=== PATIENT | male | born 1985 | race Caucasian/White ===

== ENCOUNTER 2018-05-29 14:41 | Emergency (ER) | payer OTHER, SELFPAY ==
[2018-05-29 14:59] VITALS: BP 125/75; PULSE 61; RESP 12; TEMP 36.8; O2SAT 99
--- NOTE | 2018-05-29 15:21 | ED.GENADUL_ITS ---
Discharge Plan Disposition Patient Disposition: HOME Condition: Stable Discharge Details Chief Complaint: EarProblem Clinical Impression: Impacted cerumen of left ear Primary Care Provider: Henrietta Castillo ED Provider: Reilly Jha Home Meds and New Rx's Prescriptions: Continue sertraline 100 MG tablet 100 mg PO DAILY Qty: 90 RF: 0 loratadine 10 MG tablet 10 mg PO DAILY Qty: 90 RF: 3 Discharge Instructions Instructions: Cerumen Impaction (ED) Discharge Data Discharge Physician: Reilly Jha Medical Decision Making MDM Narrative Medical decision making narrative: 33 yo comes in with decreased hearing and full sensation in left ear for a day. Denies fevers or severe pain, on exam has impacted cerumen, will have nursing irrigate the ear large amount of cerumen came out with flushing and feels better, normal tm on repeat exam, will d/c home Differential Diagnosis cerumen impaction, aom HPI General Mode of arrival: ambulatory . Date/Time Provider Initiated Documentation: 05/29/18 15:15 . Limitations to Documentation: no limitations . Information obtained by: patient . History of Present Illness 33 year old M presents to the emergency department with the chief complaint of left ear fullness, described as mild, with intensity rated at 2. and is localized to the head (left ear). Patient started experiencing this day(s) (1 ) and it has been constant. No relieving factors improve symptom(s), Patient notes loss of appetite. Patient did receive the following treatments prior to arrival, none Related Data Previous Rx's Medication Instructions Recorded sertraline 100 mg PO DAILY #90 tab 06/20/17 loratadine 10 mg PO DAILY #90 tab-cap 08/14/17 Allergies Allergy/AdvReac Type Severity Reaction Status Date / Time animal dander Allergy Intermediate Unverified 05/29/18 15:02 ragweed pollen Allergy Intermediate Unverified 05/29/18 15:02 General Stated Complaint: EarProblem KELVIN: 5 Review of Systems Review of Systems All systems reviewed & are unremarkable except as noted in HPI and below Constitutional Denies chills, Denies fever(s) and Denies weakness Eyes Patient Denies loss of vision ENT Denies change in voice Cardiovascular Denies chest pain and Denies dyspnea Respiratory Denies dyspnea Gastrointestinal Denies abdominal pain, Denies nausea and Denies vomiting Genitourinary Denies dysuria Musculoskeletal Denies joint swelling Integumentary/Breasts Denies rash Neurologic Denies loss of vision and Denies weakness Psychiatric Denies depression Endocrine Denies cold intolerance and Denies heat intolerance Allergic/Immunologic Reports urticaria PFSH Family History Mother Cerebrovascular accident Father Diabetes Alcohol abuse Depression Heart disease Hyperlipidemia Neoplasm Son No problems noted. Daughter Asthma Daughter No problems noted. Brother Depression Brother No problems noted. Brother No problems noted. Social History Smoking/Tobacco Use Status: Never Surgical History PROCEDURES Repair of inguinal hernia Exam Const General: no acute distress Orientation: alert HENMT Head: normal to inspection Ears: external ears normal, TM normal on the right and other (left ear impacted with cerumen) General nose exam: external nose normal Mouth: moist mucous membranes Eyes General: appearance normal, both eyes and all related structures Neck Neck: normal visual inspection Resp Effort & Inspection: normal respiratory effort and able to speak in complete sentences Cardio Rate: regular rate Skin General skin exam: no rashes or lesions noted Neuro General: alert and oriented x3 Extrem General: normal to inspection Psych Mental Status: mental status grossly normal Course Vital Signs Temperature 36.8 C 05/29/18 14:59 Pulse 61 05/29/18 14:59 Respiratory Rate 12 05/29/18 14:59 Blood Pressure 125/75 05/29/18 14:59 Pulse Oximetry 99 05/29/18 14:59 Temperature 36.8 C 05/29/18 14:59 Pulse 61 05/29/18 14:59 Respiratory Rate 12 05/29/18 14:59 Blood Pressure 125/75 05/29/18 14:59 Pulse Oximetry 99 05/29/18 14:59
== END 2018-05-29 16:06 | disposition home or self-care (01) ==
LOC: ER 16:24
PROVIDERS: Emergency Provider Emergency Medicine
DX: H61.22 Impacted cerumen, left ear (principal)
CPT/HCPCS: 69209; 99281

== ENCOUNTER 2018-05-31 20:59 | Emergency (ER) | payer OTHER, SELFPAY ==
[2018-05-31 21:03] VITALS: BP 128/72; PULSE 80; RESP 17; TEMP 36.6; O2SAT 98
--- NOTE | 2018-05-31 21:16 | ED.GENADUL_ITS ---
Discharge Plan Disposition Patient Disposition: HOME Condition: Stable Discharge Details Chief Complaint: EarProblem Clinical Impression: Irritation of left external auditory canal Primary Care Provider: Henrietta Castillo ED Provider: Reilly Jha Home Meds and New Rx's Prescriptions: Continue sertraline 100 MG tablet 100 mg PO DAILY Qty: 90 RF: 0 loratadine 10 MG tablet 10 mg PO DAILY Qty: 90 RF: 3 Discharge Instructions Additional Instructions: use the drops 3 times in the left ear for 5 days. If the right ear starts to hurt you can also use it in this ear if you have severe worsening of pain or high fevers return to the emergency department if pain continues next week see your primary care provider you can take 1000mg tylenol and 600mg ibuprofen every 6 hours for pain as needed Discharge Data Discharge Physician: Reilly Jha Medical Decision Making 33 yo who had bilateral ears irrigated for cerumen impaction yesterday comes in with left ear discomfort, denies fevers or d/c. On exam he has inflammation of the left external auditory canal, will place on cortisporin drops to help with healing and cover for possible aom. TM's appear normal without perforation so do not feel oral abx indiacted Differential Diagnosis aom, cerumen impaction HPI General Mode of arrival: ambulatory . Date/Time Provider Initiated Documentation: 05/31/18 21:07 . Limitations to Documentation: no limitations . Information obtained by: patient . History of Present Illness 33 year old M presents to the emergency department with the chief complaint of left ear pain, described as moderate, with intensity rated at 5. Quality is described as aching, and is localized to the head (left ear). Patient reports no radiation. Patient started experiencing this day(s) (1) and it has been constant. No relieving factors improve symptom(s), No exacerbating factors reported . Patient notes no other symptoms.. Patient did receive the following treatments prior to arrival, none Related Data Home Medications Medication Instructions Recorded Confirmed sertraline 100 mg PO DAILY #90 tab 06/20/17 05/31/18 loratadine 10 mg PO DAILY #90 tab-cap 08/14/17 05/31/18 Previous Rx's Medication Instructions Recorded sertraline 100 mg PO DAILY #90 tab 06/20/17 loratadine 10 mg PO DAILY #90 tab-cap 08/14/17 Allergies Allergy/AdvReac Type Severity Reaction Status Date / Time animal dander Allergy Intermediate Unverified 05/29/18 15:02 ragweed pollen Allergy Intermediate Unverified 05/29/18 15:02 General Stated Complaint: EarProblem KELVIN: 5 Review of Systems Review of Systems All systems reviewed & are unremarkable except as noted in HPI and below Constitutional Denies chills, Denies fever(s) and Denies weakness Eyes Denies loss of vision ENT Denies change in voice Cardiovascular Denies chest pain and Denies dyspnea Respiratory Denies dyspnea Gastrointestinal Denies abdominal pain, Denies nausea and Denies vomiting Genitourinary Denies dysuria Musculoskeletal Denies joint swelling Integumentary/Breasts Denies rash Neurologic Denies loss of vision and Denies weakness Psychiatric Denies depression Endocrine Denies cold intolerance and Denies heat intolerance Allergic/Immunologic Reports urticaria Exam Const General: no acute distress Orientation: alert HENMT Head: normal to inspection Ears: external ears normal and other (tm's normal bilaterall and right external auditory canal normal, left canal is red and inflammed, no discharge) General nose exam: external nose normal Mouth: moist mucous membranes Eyes General: appearance normal, both eyes and all related structures Neck Neck: normal visual inspection Resp Effort & Inspection: normal respiratory effort and able to speak in complete sentences Cardio Rate: regular rate Skin General skin exam: no rashes or lesions noted Neuro General: alert and oriented x3 Extrem General: normal to inspection Psych Mental Status: mental status grossly normal Course Vital Signs Temperature 36.6 C 05/31/18 21:03 Pulse 80 05/31/18 21:03 Respiratory Rate 17 05/31/18 21:03 Blood Pressure 128/72 05/31/18 21:03 Pulse Oximetry 98 05/31/18 21:03 Temperature 36.6 C 05/31/18 21:03 Temperature Source Temporal Artery Scan 05/31/18 21:03 Pulse 80 05/31/18 21:03 Respiratory Rate 17 05/31/18 21:03 Respiratory Effort Non-Labored 05/31/18 21:05 Blood Pressure 128/72 05/31/18 21:03 Blood Pressure Position Sitting 05/31/18 21:03 Pulse Oximetry 98 05/31/18 21:03 Oxygen Delivery Method Room Air 05/31/18 21:03 Oxygen Flow Rate 0 05/31/18 21:03 Pain Level 5 05/31/18 21:05
[2018-05-31] MEDS: Cortisporin OTIC SUSP 10 ML BTL (21:21)
[2018-05-31 21:22] VITALS: BP 128/72; PULSE 80; RESP 17; TEMP 36.6; O2SAT 98
== END 2018-05-31 21:56 | disposition home or self-care (01) ==
LOC: ER 21:28
PROVIDERS: Emergency Provider Emergency Medicine
DX: H60.92 Unspecified otitis externa, left ear (principal)
CPT/HCPCS: 99283

== ENCOUNTER 2020-12-13 02:55 | Outpatient (CLI) | payer SELFPAY ==
[2020-12-14 18:30] LABS: COVID-19 RT-PCR UVMMC Result Negative (Negative)
== END 2020-12-13 02:56 | disposition home or self-care (01) ==
LOC: LBO 02:55
DX: Z20.822 Contact with and (suspected) exposure to COVID-19 (principal)
CPT/HCPCS: U0003

== ENCOUNTER 2023-07-05 07:32 | Observation (INO) | payer MEDICAID, SELFPAY ==
[2023-07-05] VITALS (33 sets, daily range): BP systolic 111–130; BP diastolic 65–108; PULSE 56–81; RESP 11–20; TEMP 35.9–36.6; O2SAT 93–99
--- NOTE | 2023-07-05 07:15 | RT.EKG_ITS ---
APPROVED REPORT Exam: Resting ECG Reason for Exam: [email or web address] Patient Location: E HR:68 bpm ECG Measurements Heart Rate 68 AXIS PA 152 P 41 QRSd 94 QRS 73 QT 377 T 57 QTc 400 Conclusion Sinus rhythm...normal P axis, V-rate 60- 99 ST elevation suggests acute pericarditis...ST >0.10mV, ant/lat/inf Sinus rhythm with diffuse ST elevation. No prior for comparison. WD
--- NOTE | 2023-07-05 07:30 | DI.CT_ITS ---
Exam(s) CT HEAD - STROKE PROTOCOL EXAM: CT HEAD - STROKE PROTOCOL CLINICAL HISTORY: numbness. TECHNIQUE: Imaging Protocol: Axial computed tomography images with coronal and sagittal reformatted images were created and reviewed COMPARISON: CT HEAD WITHOUT CONTRAST from 07/13/2013 FINDINGS: Ventricles and Extra axial spaces: Normal in size and morphology for the patient's age. Hemorrhage: None. Cerebral parenchyma: Normal. No evidence of acute infarct or mass. Midline shift: None. Brainstem/Cerebellum: Normal. Calvarium: Normal. Visualized Paranasal sinuses/Mastoids: Opacification of ethmoid sinuses. Some mucous retention in th e maxillary sinuses. Soft Tissues: Unremarkable. IMPRESSION: No acute intracranial process. RADIATION DOSE DELIVERED: Total DLP DATA REPOSITORY: All CT scans at this facility are submitted to the National Radiology Data Registry (NRDR) Dose Index Registry (DIR) with the [employer] (ACR). RADIATION OPTIMIZATION: All CT scans at this facility use at least one of these dose optimization te chniques: automated exposure control; mA and/or kV adjustment per patient size (includes targeted exa ms where dose is matched to clinical indication); or iterative reconstruction.
--- NOTE | 2023-07-05 07:37 | ED.GENADUL_ITS ---
Discharge Plan Disposition Patient Disposition: Admit to [facility] Condition: Stable Discharge Details Clinical Impression: Stroke, Right facial numbness Primary Care Provider: True Gray ED Provider: Aracely Naranjo Home Meds and New Rx's Prescriptions: No Action No Known Home Meds Medical Decision Making 38-year-old male presents for evaluation after episode of speech difficulty, right facial droop, and numbness tingling to right side now with mild residual subjective right-sided weakness. At time my evaluation NIH stroke score equals 1 for decreased sensation to right face at V2 and V3. Last known well was 10 PM. Symptoms were discovered upon awakening this morning just prior to arrival. EKG shows sinus rhythm. Stroke protocol initiated. Tick panel ordered. CT head unremarkable. EKG does not show arrhythmia. Laboratory studies unremarkable. Case discussed with Dr. iDaz neurology at [facility]. Recommends full stroke work-up with echo, MRI, CTA head and neck. Echocardiogram was unremarkable. CTA of head and neck unremarkable. MRI concerning for possible restriction in vessel in the left basal ganglia. Possible acute lacunar infarct. Case was discussed with Dr. Diaz again. She recommends admission for telemetry monitoring overnight. Patient likely needs a Zio patch as outpatient. He will need to follow-up in the neurology clinic and may need a GARTH. She recommends 21 days of dual anti-platelet therapy with aspirin and Plavix. Patient received aspirin earlier in the day. Plavix was ordered. Recommendations were discussed with patient and his mother. He is agreeable to admission. Case discussed with hospitalist who will admit to their service. HPI General Date/Time Provider Initiated Documentation: 07/05/23 07:32 . HPI Narrative: 38-year-old male presents for evaluation of strokelike symptoms. Patient states that he felt well prior to going to bed last night around 10 PM. This morning he woke up with his alarm and when he started walking he realized that he had numbness to his right hand and arm. He then noted numbness to his right foot and leg. He states that they then felt weak and he felt like the right side of his face was drooping. He states that he then had difficulty getting words out. He had his daughter wake up his mother. EMS was called. Soon after EMS arrival his speech issue resolved. He does not have any more numbness or tingling. No facial droop. He states that his right hand and foot feel a little weak. He is able to ambulate without difficulty. Denies any chest pain or shortness of breath. No fevers or chills. No cough or cold. 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 He denies any recent tick bites or rashes. He states in December he had an episode of chest pain for 30 minutes which she was concerned may have been a heart attack. He states that the time the pain was on his right side and not on his left. He did not see a doctor at that time. He denies any history of high blood pressure, high cholesterol, diabetes. He is a non-smoker. No family history of stroke. He states that his mother has a history of heart disease. Related Data Home Medications Medication Instructions Recorded Confirmed Unknown [No Known Home Meds] 01/31/23 07/05/23 Allergies Allergy/AdvReac Type Severity Reaction Status Date / Time animal dander Allergy Intermediate Verified 01/31/23 16:36 ragweed pollen Allergy Intermediate Verified 01/31/23 16:36 General Stated Complaint: CVA/TIA KELVIN: 2 Review of Systems Narrative: Remainder of review of systems otherwise negative except for as noted in the HPI x10. PFSH All Active Problems (Updated 07/05/23 @ 14:34 by Aracely Naranjo MD) Right facial numbness (Acute) Stroke (Chronic) Muscle strain (Acute) Insomnia (Chronic) Generalized anxiety disorder (Chronic) Allergic rhinitis (Chronic) Surgical History H/O inguinal hernia repair S/P excision of ganglion cyst Right wrist Family History Mother Stroke Father Diabetes Alcohol abuse Depression Heart disease Hyperlipidemia Neoplasm Son No problems noted. Daughter Asthma Daughter No problems noted. Brother Depression Brother No problems noted. Brother No problems noted. Social History Smoking/Tobacco Use Status: Never Smoking risk assessment performed?: Yes Alcohol Intake: current Alcohol Intake frequency: a few times a month Alcohol t ype: beer, wine and hard liquor Drug use: Rarely Substance use type: marijuana Do you feel safe in your relationship?: Yes Exam Narrative Exam Narrative: General: non-toxic, no respiratory distress, comfortable HEENT: normocephalic, atraumatic, lids and lashes normal, PERRL, EOMI, anicteric sclera, no conjunctival injection, moist oral mucosa Card: regular rate and rhythm, S1S2, no murmurs, rubs, or gallops Lungs: good air entry, clear to auscultation bilaterally. no wheezes, rales, rhonchi, or retractions Abd: soft, non-tender, non-distended, normal bowel sounds, no rebound or guarding, no peritoneal signs Musculoskeletal: full range of motion of arms and legs, no tenderness to palpation. no clubbing, cyanosis, or edema Neurologic exam: GSC 15, CN 2-12 intact bilaterally with exception of decreased sensation to the 2 and V3 of right face, speech normal, strength normal, sensation intact distally in all four extremities, gait normal, 2+ biceps tendon reflexes, normal finger to nose, normal rapid alternating movements, no pronator drift Psych: alert and oriented Skin: no petechiae, no lesions, warm and dry Course Vital Signs Vital signs: Vital Signs Pulse 77 07/05/23 07:23 Respiratory Rate 18 07/05/23 07:23 Blood Pressure 128/108 H 07/05/23 07:23 Pulse Oximetry 99 07/05/23 07:23 Pulse 77 07/05/23 07:23 Respiratory Rate 18 07/05/23 07:23 Blood Pressure 128/108 H 07/05/23 07:23 Pulse Oximetry 99 07/05/23 07:23 Oxygen Delivery Method Room Air 07/05/23 07:23 Oxygen Flow Rate 0 07/05/23 07:23
--- NOTE | 2023-07-05 07:53 | DI.RAD_ITS ---
Exam(s) XR CHEST 1V IN DI DEPT EXAM: XR CHEST 1V IN DI DEPT CLINICAL HISTORY: numbness TECHNIQUE: 2D digital imaging was performed. COMPARISON: CR RIBS BILATERAL TO INCLUDE CXR from 07/11/2013 FINDINGS: LUNGS: Clear. No pleural abnormality seen. HEART: Normal size. AORTA: Normal diameter. BONES: Unremarkable for age. Soft tissues: Unremarkable. IMPRESSION: No acute findings. DATA REPOSITORY: RADIATION DOSE DELIVERED:
[2023-07-05 08:10] LABS: Absolute Basophil Count 0.05 10^3/uL (0.0-0.2); Absolute Eosinophil Count 0.15 10^3/uL (0.0-0.7); Absolute Monocyte Count 0.39 10^3/uL (0.1-0.8); Absolute Neutrophil Count 2.13 10^3/uL (1.2-6.7); Basophils % 1.1; Eosinophils % 3.2; HCT 50.2 % (40.0-50.0); HGB 16.7 g/dL (13.5-17.5); Lymphocytes % 41.1; MCH 29.8 pg (27.0-33.0); MCHC 33.3 % (32.0-36.0); MCV 90 fL (80-95); MPV 9.7 fL (8.0-11.0); Monocytes % 8.4; Neutrophils % 46.2; Platelet Count 239 10^3/uL (130-400); RDW 12.4 % (11.8-14.1); RDW-SD 41.1 fL; WBC 4.62 10^3/uL (4.4-10.8)
[2023-07-05 08:33] LABS: ALT 93 U/L (16-63); AST 34 U/L (15-37); Alkaline Phosphatase 56 U/L (46-116); Anion Gap 7.6 mmol/L (3-11); BUN 19 mg/dL (7-18); Bilirubin, Total 0.7 mg/dL (0.2-1.0); CO2 30.4 mmol/L (21.0-32.0); Calcium 9.3 mg/dL (8.5-10.1); Chloride 101 mmol/L (98-107); Estimated GFR 99.41 (mL/min/1.73m2); Glucose 115 mg/dL (74-106); Magnesium 2.1 mg/dL (1.8-2.4); Potassium 4.1 mmol/L (3.5-5.1); Sodium 139 mmol/L (136-145); TSH (W/Ref FT4) 0.85 uIU/mL (0.36-3.74); Total Protein 7.6 g/dL (6.4-8.2); Troponin I < 50 ng/L (<or=60)
--- NOTE | 2023-07-05 10:00 | DI.US_ITS ---
APPROVED REPORT EXAM: Comprehensive 2D, Doppler, and color-flow Echocardiogram Patient Location: ER Room/Bed: 3 Wind Turbine Installer: Adolfo Barragan RDCS (AE) Indications: stroke Other Information Study Quality: Good Conclusion Normal left ventricular wall thickness and chamber size. Ejection fraction is 60 to 65%. Wall motio n is normal Normal right ventricular size and systolic function Both atria are normal in size There is no structural or hemodynamically significant valvular disease Estimated right ventricular systolic pressure is 22 mmHg Wall motion Left Ventricle The left ventricle is normal size. Left ventricular systolic function is normal. The left ventricular ejection fraction is within the normal range. There is normal left ventricular wall thickness. There is normal LV segmental wall motion. There is no ventricular septal defect visualized. LVEF is 60-65% . Right Ventricle The right ventricle is normal size. The right ventricular systolic function is normal. The RVSP is 22 .1 mmHg. Atria The left atrium size is normal. The right atrium size is normal. The interatrial septum is intact wit h no evidence for an atrial septal defect. Aortic Valve The aortic valve is normal in structure. Aortic valve is trileaflet. There is no aortic valvular sten osis. No aortic regurgitation is present. Mitral Valve The mitral valve is normal in structure. No evidence of mitral valve stenosis. There is no mitral renu ve regurgitation noted. Tricuspid Valve The tricuspid valve is normal in structure. There is no tricuspid valve stenosis. Mild tricuspid regu rgitation. Pulmonic Valve The pulmonary valve is normal in structure. There is no pulmonic valvular stenosis. Moderate pulmonic regurgitation. Great Vessels The aortic root is normal in size. The ascending aorta is normal in size. Aortic arch is normal in ca liber. IVC is normal in size and collapses >50% with inspiration. Pericardium There is no pericardial effusion. 2D Dimensions IVSD d PLAX 0.86 cm M: 0.6-1.2 Ao Root d 2.90 cm M: 3.1 - 3.7 LVPW d PLAX 0.86 cm M: 0.6 - 1.2 Ao Asc Diam d 3.10 cm M: 2.6 - 3.4 LVID d PLAX 4.12 cm M: 4.2 - 5.8 LVDs 2.65 cm M: 2.5 - 4.0 LV EF Teichholz 65.4 % FS 35.52 % LV EDV (Teich) 74.9 mL LV ESV (Teich) 25.9 mL Stroke Vol Index (Teich) 27.70 M-Mode TAPSE 2.08 cm (M/F) >1.7 Auto EF LV EDV A4C 111.2 mL LV EDV A2C 95.2 mL LV EDV BP 104.1 mL LV ESV A4C 43.7 mL LV ESV A2C 37.8 mL LV ESV BP 40.5 mL LVEF(%) A4C 60.7 % LVEF(%) A2C 60.3 % LVEF(%) BP 61.1 % LV SV A4C 67.5 ml LV SV A2C 57.4 ml LV SV BP 63.6 ml LV CO A4C 4.3 L/min LV CO A2C 3.4 L/min LV CO BP 3.8 L/min HR A4C 63.83 BPM HR A2C 58.44 BPM LV EDV Index (BP) LA Volume LA Length A4C 4.6 cm LA Length A2C LA Area A4C s 10.52 cm2 LA Area A2C s LA Vol A4C A-L 20.44 mL LA Vol A2C A-L LA Vol Biplane A-L LA Vol A4C MOD 18.4 mL LA Vol A2C MOD LA Vol BP MOD RA Volume RA Area A4C 9.3 cm2 RA ESV A4C (A-L) 19.2mL RA Vol/BSA A4C A-L RA Length A4C 3.9 cm RA ESV A4C (MOD) 19.2mL LV Diastology MV E' medial 0.125 (>0.07 m/s) MV E Vmax 0.77 (0.4-1.3 m/s) MV E/E' MED 6.17 (<14) MV A Vmax 0.45 (0.4-1.3 m/s) MV E' lateral 0.149 (>0.1 m/s) E/A Ratio 1.7 MV E/E' LAT 5.15 (<14) MV E' Average 0.137 m/s MV E/E'(average) 5.62 Aortic Valve AoV Vmax 1.21 m/s LVOT Diam s 2.10 cm AoV Peak Grad 5.8 mmHg AoV VTI 0.287 m AoV Mean Blanco. 0.86 m/s AoV Mean Grad 3.3 mmHg Mitral Valve MV DT 167 (160-240 msec) Pulmonary Valve PV Vmax 1.00 (0.5-1.5 m/s) RVOT Vmax 0.68 m/s PV Peak Grad 4.0 mmHg RVOT Peak Gr. 1.8 mmHg PV Mean Blanco 0.62 m/s RVOT VTI 0.167 m PV Mean Grad 1.8 mmHg RVOT Mean Gr. 1.0 mmHg Tricuspid Valve RA Pressure 3.00 mmHg TR Vmax 2.18 m/s TR Peak Grad 19.0 mmHg RVSP (TR) 22.1 mmHg
--- NOTE | 2023-07-05 10:00 | DI.MRI_ITS ---
Exam(s) MR BRAIN WO EXAM: MR BRAIN WO CLINICAL HISTORY: facial numbness, weaknes TECHNIQUE: Multiplanar multisequence MRI of the brain was performed. COMPARISON: CT CT HEAD - STROKE PROTOCOL from 07/05/2023 FINDINGS: VENTRICLES AND EXTRA AXIAL SPACES: Normal in size and morphology for the patient's age. MIDLINE SHIFT: None. CEREBRAL PARENCHYMA: There are few tiny foci of restricted diffusion in the left basal ganglia consis tent with acute lacunar infarct. No abnormal signal is seen on T2 or FLAIR images. There is no evid ence of an old infarct. No space-occupying lesion identified. HEMORRHAGE: None. BRAINSTEM/CEREBELLUM: Normal. VISUALIZED PARANASAL SINUSES/MASTOIDS:Opacification of ethmoid sinuses. Mucous retention at the floo r of the maxillary sinuses. Vasculature: Normal flow void. PITUITARY GLAND: Unremarkable. ORBITS: Unremarkable. IMPRESSION: Tiny foci of restricted diffusion consistent with acute lacunar infarcts in the left basal ganglia. Findings called to Dr. Naranjo of the emergency department. DATA REPOSITORY:
--- NOTE | 2023-07-05 10:00 | DI.CT_ITS ---
Exam(s) CT BRAIN NECK CTA EXAM: CT BRAIN NECK CTA CLINICAL HISTORY: facial numbness. TECHNIQUE: Imaging Protocol: Axial CT angiography was performed with multi-slice acquisition and mu lti-planar and 3D reconstructions. CONTRAST MATERIAL: Intravenous: Omnipaque 350 Contrast volume:100 ml COMPARISON: MR MR BRAIN WO from 07/05/[address] HEAD - STROKE PROTOCOL from 07/05/2023 FINDINGS: CT Head W contrast: Ventricles and Extra axial spaces: Normal in size and morphology for the patient's age. Hemorrhage: None. Cerebral parenchyma: Normal. Midline shift: None. Brainstem/Cerebellum: Normal. Calvarium: Normal. Visualized Paranasal sinuses/Mastoids: Indication of ethmoid sinuses. Significant mucous retention i n the maxillary sinuses. Soft Tissues: Unremarkable. Enhancement: Normal. CTA Brain W: Internal Carotid Arteries: Petrous: Normal. Cavernous: Normal. Cerebral: Normal. Middle Cerebral Arteries: Right: No aneurysm, occlusion or significant stenosis. Left: No aneurysm, occlusion or significant stenosis. Anterior Cerebral Arteries: Right: No aneurysm, occlusion or significant stenosis. Left: No aneurysm, occlusion or significant stenosis. Posterior cerebral Arteries: Right: No aneurysm, occlusion or significant stenosis. Left: No aneurysm, occlusion or significant stenosis. Vertebral Arteries: Right: No aneurysm, occlusion or significant stenosis. Left: No aneurysm, occlusion or significant stenosis. Basilar Artery: No aneurysm, occlusion or significant stenosis. CTA Neck W: Common Carotid: Right: No dissection, occlusion or significant stenosis. Left: No dissection, occlusion or significant stenosis. External Carotid: Right: No dissection, occlusion or significant stenosis. Left: No dissection, occlusion or significant stenosis. Internal Carotid: Right: No dissection, occlusion or significant stenosis. Left: No dissection, occlusion or significant stenosis. Vertebral Artery: Right: No dissection, occlusion or significant stenosis. Left: No dissection, occlusion or significant stenosis. Lung Apices: Normal. Bones: No acute abnormality. Soft Tissues: Normal. IMPRESSION: 1. Normal CTA examination of the [place]. 2. Unremarkable CT Head. 3. Normal CTA examination of the neck. RADIATION DOSE DELIVERED: Total DLP Total DLP DATA REPOSITORY: All CT scans at this facility are submitted to the National Radiology Data Registry (NRDR) Dose Index Registry (DIR) with the [employer] (ACR). RADIATION OPTIMIZATION: All CT scans at this facility use at least one of these dose optimization te chniques: automated exposure control; mA and/or kV adjustment per patient size (includes targeted exa ms where dose is matched to clinical indication); or iterative reconstruction.
[2023-07-05] MEDS: Aspirin 325 MG TAB PO (10:27)
[2023-07-05 10:49] LABS: Bilirubin Negative (Negative); Blood Negative (Negative); Clarity Clear (Clear); Glucose Negative (Negative); Ketones Negative (Negative); Leukocyte Esterase Negative (Negative); Nitrite Negative (Negative); Urobilinogen 0.2 mg/dL (Up to 0.2)
[2023-07-05 10:58] LABS: *AMPHETAMINES SCREEN URINE Negative (Negative); *BARBITURATES SCREEN URINE Negative (Negative); *BENZODIAZEPINES SCREEN URINE Negative (Negative); Cannabinoids THC Negative (Negative); Cocaine Screen,Urine Negative (Negative); METHADONE URINE SCREEN Negative (Negative); OPIATES URINE SCREEN Negative (Negative)
[2023-07-05 11:02] LABS: Tricyclic Antidepressants Negative (Negative)
[2023-07-05 11:13] LABS: Troponin I < 50 ng/L (<or=60)
[2023-07-05] MEDS: Omnipaque 350 MG/ML 500 ML BTL-Imaging package 100 ML IJ (12:03)
[2023-07-05] MEDS: Normal Saline - Diluent 50 ML VIAL IJ (12:05)
[2023-07-05] MEDS: Clopidogrel 75 MG TAB PO (14:02)
[2023-07-05 14:10] LABS: Cholesterol 264 mg/dL (<200)
[2023-07-05 14:18] LABS: Source Nasal/Nares
[2023-07-05 15:01] LABS: COVID-19 PCR Negative (Negative)
[2023-07-05] MEDS: Enoxaparin 40 MG/0.4 ML SYR SC (16:19)
[2023-07-05 17:09] LABS: Hemoglobin A1C 5.3 % (<5.7)
--- NOTE | 2023-07-05 17:18 | SP_ITS ---
Date of service: 07/05/23 Time of Service: 17:20 Subjective Clinical (Bedside) Swallow Evaluation Speech Language Pathology Referred by: Dr. Ele MD Hospitalist Service Referral Type: Clinical Swallow Evaluation Reason for Referral/HPI: Stroke protocol/rule out dysphagia, aspiration risk ASSESSMENT: No evidence of dysphagia or speech-language impairment. Cranial nerve exam normal including sensation (facial, lingual). FURTHER DRAWING SUPERVISOR SERVICES: No further DRAWING SUPERVISOR services indicated. Patient was educated on indications for DRAWING SUPERVISOR re-evaluation including speech changes, s/sx aspiration or swallowing changes, or word-finding difficulties. Diet recommendation: IDDSI Level 7-Regular Solids 0-Thin Liquids -Please see further details at [email or web address] -Diet texture modification is per patient's preference; please adjust diet textures at patient's discretion & collaboration with care team. Medication Administration: As tolerated SUBJECTIVE: Patient received alert/awake, agreeable to evaluation. Denies current s/sx aspiration, stasis, or other difficulties with swallowing. Denies difficulty swallowing pills. Endorses possible slight residual R facial numbness/sensation changes, then saying maybe it's just because I've been sitting here doing nothing all day. Endorses initial speech disturbances (slurred) and word-finding difficulties which resolved earlier this date. Pain Reported? N Baseline Swallow Function: Patient denies swallowing difficulty prior to admission and eats a regular diet at baseline. OBJECTIVE: Respiratory: Tolerates room air without s/sx dyspnea. Speech screening: No dysarthric or apraxic features noted in conversation. Normal speech AMR'SMR's. Language: No overt word-finding difficulties or abnormal pauses. Syntax is normal. Responses to multi-part questions are appropriate and reliable. Normal prosody and pragmatics in short conversation. PO Trials Assessed: IDDSI 0 Thin Liquids IDDSI 7 Regular Solid Oral Mechanism Examination: WFL Dentition is normal. Oral mucosa is moist/normal. Cranial Nerve Assessment: CN V ? Trigeminal Facial Sensation WNL Jaw Strength/ROM WNL ?WNL CN VII- Facial WNL labial ROM, strength, coordination. WNL lingual sensation WNL CN IX ? Glossopharyngeal WNL palatal elevation with phonation. No evidence of nasal emissions WNL CN X ? Vagus WNL Vocal quality and volume. Strong/sharp volitional cough WNL CX XII ? Hypoglossal WNL lingual ROM, strength, coordination WNL Oral Phase Findings: WFL Pharyngeal Phase Findings: WFL ? [place] Swallow Protocol Results: PASS, Complete/uninterrupted without s/sx aspiration ??? DRAWING SUPERVISOR CPT Code: 88884 Clinical Swallowing Evaluation Time spent: 20 min Coding CPT Codes EVALUATE SWALLOWING FUNCTION - 71464 ([id number]) Additional Codes Date of Service (67609) Date of service: 07/05/23
--- NOTE | 2023-07-05 18:11 | W.PM.HP.N ---
Date of service: 07/05/23 Time of Service: 18:11 Assessment and Plan Assessment and plan (1) Infarction of left basal ganglia: Status: Acute Assessment and plan: Patient has essentially completed the stroke work-up while he was waiting in the ER. Patient has been started on dual antiplatelet therapy with Plavix and aspirin. I have added atorvastatin to his regimen. He will need follow-up outpatient GARTH to rule out a PFO. He will need a 14-day cardiac event recorder for 30-day event recorder to assess for any PAF. I have ordered blood studies to look for hypercoagulability including Leyden factor V mutation factor as well as lupus anticoagulant cascade and Antithrombin III functional assay as well as GABRIELLE and [id number] DNA as well as protein C and protein S functional assay. I also ordered prothrombin [id number] mutation factor assay. Patient has no arrhythmias overnight and has no further neurologic symptoms and he can be discharged home tomorrow with close follow-up in the neurology clinic with Dr. Montoya in the next 2 weeks. He should be referred to cardiology at either [facility] or [facility] for an outpatient GARTH. Physical therapy should see him and evaluate him and clear him for discharge tomorrow. Speech therapy has already seen him and cleared him. Professional time spent interviewing and examining patient, discussion of goals of care with hospital team (care management, nursing and consulting professionals) was 60 minutes. History of Present Illness History of Present Illness Chief Complaint: right sided numbness and weakness, difficult speech Narrative: 38-year-old right-handed male with no significant past medical history who woke up around 6:15 AM got his children up and went to prepare breakfast when he noticed right hand numbness that over the next 10 minutes progressed to his entire right arm and right leg as well as his right face. He knows he was getting clumsy and weak on the right side. He sat on the couch to see if it was getting better when it progressed he started having difficulty with his speech trouble pronouncing words which led to him calling his daughter to wake up his mother who was staying with him. His mother called EMS since the EMS arrived around 6:45 AM and he arrived to the emergency department 7:23 AM. By the time EMS arrived his speech was starting to clear and by the time he arrived to the emergency department his right hemiparesis and paresthesias had improved. Per the ED doctor's exam he had no focal motor deficits no focal sensory deficits. Stroke work-up included noncontrast CT scan head showed no acute abnormalities. Subsequently he had a CTA of his head and neck which showed no atherosclerotic narrowing of his cervical cerebral vessels. There were no occlusions of any of his vessels of the [place] or within his cervical vessels. MRI scan was performed and showed a restricted diffusion defect within the left basal ganglia consistent with acute lacunar infarcts. Echocardiogram was performed without bubble study or contrast and showed normal left ventricular and right ventricular size and function and normal atria size and no valvular lesions. The ED provider spoke with neurologist at [facility], Dr. iDaz who recommended dual antiplatelet therapy for 21 days and then continue aspirin thereafter. She also recommend patient have an outpatient GARTH and needs close follow-up in the neurology clinic. She also recommend extended cardiac monitoring upon discharge with at least a 14-day Zio patch. He recommended that he be hospitalized on observation status for 24 hours to look for any cardiac arrhythmias to make sure he has no progression of his stroke. Patient has been admitted to the medical/surgical floor on telemetry has had stable rhythm. Speech therapy and physical therapy been consulted. DUTY ENGINEER provider has cleared him and feels that he needs no speech follow-up. Physical therapy has yet to see the patient. Patient feels that he is back to his baseline. He denies any visual problems and says that the feeling in his face,right hand and arm and leg is back to normal. He has mild headache from lack of caffeine. With regard to stroke risk factors he does not smoke on a regular basis he occasionally will have marijuana couple times a month. He denies alcohol use. He has no personal history of essential hypertension or diabetes or hyperlipidemia. There is been no family history of hypercoagulable disorder or family history of strokes. He denies any palpitations or chest pain to suggest any arrhythmias. 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 Review of Systems Constitutional Constitutional: Reports as per HPI Eyes Eyes: Reports system reviewed and no additional complaints, except as documented ENT Ears, Nose, Mouth, and Throat: Reports system reviewed and no additional complaints, except as documented Cardiovascular Cardiovascular: Reports system reviewed and no additional complaints, except as documented Respiratory Respiratory: Reports system reviewed and no additional complaints, except as documented Gastrointestinal Gastrointestinal: Reports system reviewed and no additional complaints, except as documented Neurologic Neurologic: Reports system reviewed and no additional complaints, except as documented Endocrine Endocrine: Reports system reviewed and no additional complaints, except as documented Hematologic/Lymphatic Hematologic/Lymphatic: Reports system reviewed and no additional complaints, except as documented Allergic/Immunologic Allergic/Immunologic: Reports system reviewed and no additional complaints, except as documented PFSH All Active Problems (Updated 07/05/23 @ 19:01 by Hari Marlow MD) Infarction of left basal ganglia (Acute) Right facial numbness (Acute) Stroke (Chronic) Muscle strain (Acute) Insomnia (Chronic) Generalized anxiety disorder (Chronic) Allergic rhinitis (Chronic) Surgical History H/O inguinal hernia repair S/P excision of ganglion cyst Right wrist Family History Mother Stroke Father Diabetes Alcohol abuse Depression Heart disease Hyperlipidemia Neoplasm Son No problems noted. Daughter Asthma Daughter No problems noted. Brother Depression Brother No problems noted. Brother No problems noted. Social History Smoking/Tobacco Use Status: Never Smoking risk assessment performed?: Yes Alcohol Intake: current Alcohol Intake frequency: a few times a month Alcohol type: beer, wine and hard liquor Drug use: Rarely Substance use type: marijuana Housing: house Do you feel safe in your relationship?: Yes Meds Allergies and Home Medications Allergies Allergy/AdvReac Type Severity Reaction Status Date / Time animal dander Allergy Intermediate Verified 01/31/23 16:36 ragweed pollen Allergy Intermediate Verified 01/31/23 16:36 Home Medications Medication Instructions Recorded Confirmed Type Unknown [No Known Home Meds] 01/31/23 07/05/23 History Exam Narrative Exam Narrative: Alert and oriented x4 HEENT: Atraumatic normocephalic, pupils equally round reactive to light and accommodation, extraocular motion intact, TMs intact, nares moist and patent without exudate or bleeding, oropharynx noninjected without exudate, teeth in good repair Neck: Supple, nontender, without thyromegaly or lymphadenopathy or JVD. Normal carotid pulses Lungs: Clear to auscultation and percussion Heart: Regular rate and rhythm without murmur rub or gallop. Normal apical impulse Abdomen: Nondistended, normal bowel sounds, nontender to palpation or percussion, no organomegaly, no bruits, no palpable masses Extremities: Normal range of motion with normal strength. No peripheral cyanosis or edema. Normal pulses Neurologic: Cranial nerves II through XII grossly within normal limits. Normal strength and sensation over the face trunk and extremities. DTRs within normal limits. No tremors or asterixis. No dysdiadochokinesia. Results Labs 07/05/23 07:30 07/05/23 07:30 Labs: Laboratory Results - last 24 hr 07/05/23 07/05/23 07/05/23 07:30 10:26 10:33 WBC 4.62 RBC 5.60 Hgb 16.7 Hct 50.2 H MCV 90 MCH 29.8 MCHC 33.3 RDW 12.4 Plt Count 239 MPV 9.7 Immature Gran % 0.0 Neutrophils % 46.2 Lymphocytes % 41.1 Monocytes % 8.4 Eosinophils % 3.2 Basophils % 1.1 Nucleated RBC % 0.0 Absolute Neutrophils 2.13 Absolute Lymphocytes 1.90 Absolute Monocytes 0.39 Absolute Eosinophils 0.15 Absolute Basophils 0.05 Sodium 139 Potassium 4.1 Chloride 101 Carbon Dioxide 30.4 Anion Gap 7.6 BUN 19 H Creatinine 1.0 Est GFR (CKD-EPI 2020) 99.41 Glucose 115 H Hemoglobin A1c Calcium 9.3 Magnesium 2.1 Total Bilirubin 0.7 AST 34 ALT 93 H Alkaline Phosphatase 56 Troponin I < 50 < 50 Total Protein 7.6 Albumin 4.0 Total Cholesterol 264 H TSH 0.85 Urine Color Yellow Urine Clarity Clear Urine pH 8.0 Ur Specific [place] 1.020 Urine Protein Negative Urine Ketones Negative Urine Blood Negative Urine Nitrite Negative Urine Bilirubin Negative Urine Urobilinogen 0.2 Ur Leukocyte Esterase Negative Urine Glucose Negative Urine Opiates Screen Negative Urine Methadone Screen Negative Ur Barbiturates Screen Negative Ur Tricyclics Screen Negative Ur Amphetamines Screen Negative U Benzodiazepines Scrn Negative Urine Cocaine Screen Negative Ur THC Screen Negative COVID-19 Source SARS-CoV-2 (PCR) 07/05/23 07/05/23 14:11 16:49 WBC RBC Hgb Hct MCV MCH MCHC RDW Plt Count MPV Immature Gran % Neutrophils % Lymphocytes % Monocytes % Eosinophils % Basophils % Nucleated RBC % Absolute Neutrophils Absolute Lymphocytes Absolute Monocytes Absolute Eosinophils Absolute Basophils Sodium Potassium Chloride Carbon Dioxide Anion Gap BUN Creatinine Est GFR (CKD-EPI 2020) Glucose Hemoglobin A1c 5.3 Calcium Magnesium Total Bilirubin AST ALT Alkaline Phosphatase Troponin I Total Protein Albumin Total Cholesterol TSH Urine Color Urine Clarity Urine pH Ur Specific [place] Urine Protein Urine Ketones Urine Blood Urine Nitrite Urine Bilirubin Urine Urobilinogen Ur Leukocyte Esterase Urine Glucose Urine Opiates Screen Urine Methadone Screen Ur Barbiturates Screen Ur Tricyclics Screen Ur Amphetamines Screen U Benzodiazepines Scrn Urine Cocaine Screen Ur THC Screen COVID-19 Source Nasal/Nares SARS-CoV-2 (PCR) Negative Last Vital Signs Temp 35.9 C L 07/05/23 15:44 Pulse 76 07/05/23 15:44 Resp 19 07/05/23 15:44 BP 126/81 07/05/23 15:44 Pulse Ox 97 07/05/23 15:44 Time Spent Time spent with Patient: 55-74 minutes Time was spent: preparing to see the patient(eg.review tests), obtaining and/or reviewing separately otained hiistory, ordering medications,tests, procedures, referring, communicating with other health reproductive healthcare assistant, indepentently interpreting results, counseling the patient and care coordination
[2023-07-05] MEDS: Atorvastatin 40 MG TAB 80 MG PO (19:14)
[2023-07-05] MEDS: Normal Saline Flush 10 ML SYR IVP (19:14)
--- NOTE | 2023-07-06 02:30 | RT.EKG_ITS ---
APPROVED REPORT Exam: Resting ECG Reason for Exam: telemetry change Patient Location: I HR:55 bpm ECG Measurements Heart Rate 55 AXIS FL 166 P 34 QRSd 94 QRS 76 QT 417 T 64 QTc 399 Conclusion Sinus rhythm...normal P axis, V-rate 50- 99 Artifact in lead(s) I,II,aVR,aVL,aVF
[2023-07-06 03:14] VITALS: BP 120/75; PULSE 58; RESP 18; TEMP 36.4; O2SAT 95
[2023-07-06 03:34] LABS: Troponin I < 50 ng/L (<or=60)
[2023-07-06 05:23] LABS: Anion Gap 10.5 mmol/L (3-11); BUN 17 mg/dL (7-18); CO2 21.5 mmol/L (21.0-32.0); CREATININE 0.9 mg/dL (0.70-1.30); Chloride 102 mmol/L (98-107); Estimated GFR 112.81 (mL/min/1.73m2); Glucose 114 mg/dL (74-106); Potassium 4.4 mmol/L (3.5-5.1); Sodium 134 mmol/L (136-145)
--- NOTE | 2023-07-06 06:50 | DSE_ITS ---
Date of service: 07/06/23 Time of Service: 09:39 DS: Diagnosis Discharge Diagnosis (1) Infarction of left basal ganglia: Status: Acute Asessment and Plan: Pt had no recurrence of CVA symptoms. Telemetry monitoring showed no arrhythmias. Will discharge home with a 30 day cardiac event monitor. Schedule an outpt GARTH at [facility] Lipitor 40mg daily Plavix 75mg daily for 21-30 days then d/c. Aspirin 81mg daily. Total cholesterol 264. A1c 5.4 Discharge Plan Disposition Patient Disposition: Home Condition: Good Discharge Details Reason For Visit: CVA Admit Date/Time: 07/05/23 13:57 Admit Provider: Hari Marlow Attending Provider: Hari Marlow Primary Care Provider: True Gray Hospital Course Hospital Course: This is a 38-year-old right-handed male with no significant past medical history who woke up around 6:15 AM got his children up and went to prepare breakfast when he noticed right hand numbness that over the next 10 minutes progressed to his entire right arm and right leg as well as his right face. He knows he was getting clumsy and weak on the right side. He sat on the couch to see if it was getting better when it progressed he started having difficulty with his speech trouble pronouncing words which led to him calling his daughter to wake up his mother who was staying with him. His mother called EMS since the EMS arrived around 6:45 AM and he arrived to the emergency department 7:23 AM. By the time EMS arrived his speech was starting to clear and by the time he arrived to the emergency department his right hemiparesis and paresthesias had improved. Per the ED doctor's exam he had no focal motor deficits no focal sensory deficits. Stroke work-up included noncontrast CT scan head showed no acute abnormalities. Subsequently he had a CTA of his head and neck which showed no atherosclerotic narrowing of his cervical cerebral vessels. There were no occlusions of any of his vessels of the [place] or within his cervical vessels. MRI scan was performed and showed a restricted diffusion defect within the left basal ganglia consistent with acute lacunar infarcts. Echocardiogram was performed without bubble study or contrast and showed normal left ventricular and right ventricular size and function and normal atria size and no valvular lesions. The ED provider spoke with neurologist at [facility], Dr. Diaz who recommended dual antiplatelet therapy for 21 days and then continue aspirin thereafter. She also recommend patient have an outpatient GARTH and needs close follow-up in the neurology clinic. She also recommend extended cardiac monitoring upon discharge with at least a 14-day Zio patch. He recommended that he be hospitalized on observation status for 24 hours to look for any cardiac arrhythmias to make sure he has no progression of his stroke. Patient has been admitted to the medical/surgical floor on telemetry has had stable rhythm. Speech therapy and physical therapy been consulted. DESK MANAGER provider has cleared him and feels that he needs no speech follow-up. Physical therapy has yet to see the patient. Patient feels that he is back to his baseline. He denies any visual problems and says that the feeling in his face,right hand and arm and leg is back to normal. He has mild headache from lack of caffeine. With regard to stroke risk factors he does not smoke on a regular basis he occasionally will have marijuana couple times a month. He denies alcohol use. He has no personal history of essential hypertension or diabetes or hyperlipidemia. There is been no family history of hypercoagulable disorder or family history of strokes. He denies any palpitations or chest pain to suggest any arrhythmias. 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 See Diagnosis PCP f/u in 1 week. Home Meds and New Rx's Prescriptions: New atorvastatin 40 mg Tablet 40 mg PO QPM Qty: 30 0RF clopidogrel 75 mg Tablet 75 mg PO DAILY Qty: 30 0RF aspirin 81 mg Tablet,Delayed Release (Dr/Ec) 81 mg PO DAILY Qty: 0 0RF Discharge Instructions Instructions: Ischemic Stroke (GEN), Hyperlipidemia (GEN), Mediterranean Diet (GEN) Referrals: [facility] [Outside] ([facility] V[facility]; Transesophageal Echocardiogram. CVA work-up.) Activity:: Activity as Tolerated Equipment/Supplies:: No Equipment Needed Diet:: Heart healthy, mediterranean Discharge Orders Discharge Orders: Discharge Order (Routine); Ordered 07/06/23 Ordered By: Reynaldo Crook Other Ambulatory Orders: Cardiac Event Recorder (Routine) Timeframe: 30 Days Facility: [facility] - Location: Respiratory Therapy Ordered By: Reynaldo Crook DS: Summary Time Spent with Patient providing and/or coordinating discharge services: Greater than 30 minutes Status at Discharge Functional status at discharge: independent ambulation Overall status at discharge: patient is back to baseline Mental Status: mental status grossly normal Speech and Movement: speech and movement normal Mood: congruent mood Affect: normal affect Exam Narrative Exam Narrative: Gen: Alert and oriented x4. Ambulating in room. HEENT: Atraumatic normocephalic, pupils equally round reactive to light and accommodation, extraocular motion intact Neck: Supple, nontender, without thyromegaly or lymphadenopathy or JVD. Normal carotid pulses Lungs: Clear to auscultation and percussion Heart: Regular rate and rhythm without murmur Abdomen: Nondistended, normal bowel sounds, nontender Extremities: Normal range of motion with normal strength. No edema. Neurologic: Cranial nerves II through XII grossly within normal limits. Normal strength and sensation over the face trunk and extremities. No tremors or asterixis. No dysdiadochokinesia. Psych Mental Status: mental status grossly normal Speech and Movement: speech and movement normal Mood: congruent mood Affect: normal affect DS: Data Vitals/I&O Vitals and I&O: Vital Signs Temperature 36.4 C L 07/06/23 03:14 Temperature Source Tympanic 07/06/23 03:14 Pulse 58 L 07/06/23 03:14 Pulse Rhythm Regular 07/06/23 02:07 Pulse 63 07/05/23 13:30 Respiratory Rate 18 07/06/23 03:14 Respiratory Effort Normal 07/06/23 02:07 Respiratory Depth Normal 07/06/23 02:07 Respiratory Pattern Normal 07/06/23 02:07 Blood Pressure 120/75 07/06/23 03:14 Blood Pressure Mean 88 07/05/23 13:08 Pulse Oximetry 95 07/06/23 03:14 Oxygen Delivery Method Room Air 07/06/23 03:14 Oxygen Flow Rate 0 07/06/23 03:14 Pain Level 0 07/05/23 23:31 Intake & Output 07/05/23 07/05/23 07/06/23 11:59 23:59 11:59 Intake Total Balance Weight 68.039 kg 68 kg Intake: IV Other: Urine Appearance Clear Clear Urine Odor None Comment Pt independent w/ toileting Data Completed and Pending Labs on day of discharge: Labs from last 24 hours 07/06/23 07/06/23 07/06/23 08:30 05:35 02:50 WBC RBC Hgb Hct MCV MCH MCHC RDW Plt Count MPV Immature Gran % Neutrophils % Lymphocytes % Monocytes % Eosinophils % Basophils % Nucleated RBC % Absolute Neutrophils Absolute Lymphocytes Absolute Monocytes Absolute Eosinophils Absolute Basophils ESR Pending Lupus Anticoag Interp Pending Functional Protein C Pending Functional Protein S Pending Func Antithrombin III Pending Antithrombin III Activ Pending Factor V Leiden Mutat Pending Factor V Leiden Interp Pending Fact V Leiden Review By Pending Sodium 134 L Potassium 4.4 Chloride 102 Carbon Dioxide 21.5 Anion Gap 10.5 BUN 17 Creatinine 0.9 Est GFR (CKD-EPI 2020) 112.81 Glucose 114 H Hemoglobin A1c Calcium 9.0 Magnesium Total Bilirubin AST ALT Alkaline Phosphatase Troponin I < 50 Total Protein Albumin Total Cholesterol TSH Urine Color Urine Clarity Urine pH Ur Specific Lawrence Urine Protein Urine Ketones Urine Blood Urine Nitrite Urine Bilirubin Urine Urobilinogen Ur Leukocyte Esterase Urine Glucose Urine Opiates Screen Urine Methadone Screen Ur Barbiturates Screen Ur Tricyclics Screen Ur Amphetamines Screen U Benzodiazepines Scrn Urine Cocaine Screen Ur THC Screen GABRIELLE Titer Pending GABRIELLE Titer 2 Pending GABRIELLE Titer 3 Pending GABRIELLE Interpretation Pending Double Strand DNA Ab Pending B. divergens/MO-1 PCR Babesia duncani (PCR) Babesia microti DNA PCR Lyme Disease Antibody COVID-19 Source SARS-CoV-2 (PCR) E.chaffeensis DNA (PCR) E.ewingii/canis DNA PCR E.muris eauclairensis (PCR) Prothrombin [id number] Mut Pending Prothrombin Mut Interp Pending Prothromb Reviewed By Pending A. phagocytophilum (PCR) Blood B. miyamotoi (PCR) 07/05/23 07/05/23 07/05/23 16:49 14:11 10:33 WBC RBC Hgb Hct MCV MCH MCHC RDW Plt Count MPV Immature Gran % Neutrophils % Lymphocytes % Monocytes % Eosinophils % Basophils % Nucleated RBC % Absolute Neutrophils Absolute Lymphocytes Absolute Monocytes Absolute Eosinophils Absolute Basophils ESR Lupus Anticoag Interp Functional Protein C Functional Protein S Func Antithrombin III Antithrombin III Activ Factor V Leiden Mutat Factor V Leiden Interp Fact V Leiden Review By Sodium Potassium Chloride Carbon Dioxide Anion Gap BUN Creatinine Est GFR (CKD-EPI 2020) Glucose Hemoglobin A1c 5.3 Calcium Magnesium Total Bilirubin AST ALT Alkaline Phosphatase Troponin I < 50 Total Protein Albumin Total Cholesterol TSH Urine Color Urine Clarity Urine pH Ur Specific Lawrence Urine Protein Urine Ketones Urine Blood Urine Nitrite Urine Bilirubin Urine Urobilinogen Ur Leukocyte Esterase Urine Glucose Urine Opiates Screen Urine Methadone Screen Ur Barbiturates Screen Ur Tricyclics Screen Ur Amphetamines Screen U Benzodiazepines Scrn Urine Cocaine Screen Ur THC Screen GABRIELLE Titer GABRIELLE Titer 2 GABRIELLE Titer 3 GABRIELLE Interpretation Double Strand DNA Ab B. divergens/MO-1 PCR Babesia duncani (PCR) Babesia microti DNA PCR Lyme Disease Antibody COVID-19 Source Nasal/Nares SARS-CoV-2 (PCR) Negative E.chaffeensis DNA (PCR) E.ewingii/canis DNA PCR E.muris eauclairensis (PCR) Prothrombin [id number] Mut Prothrombin Mut Interp Prothromb Reviewed By A. phagocytophilum (PCR) Blood B. miyamotoi (PCR) 07/05/23 07/05/23 10:26 07:30 WBC 4.62 RBC 5.60 Hgb 16.7 Hct 50.2 H MCV 90 MCH 29.8 MCHC 33.3 RDW 12.4 Plt Count 239 MPV 9.7 Immature Gran % 0.0 Neutrophils % 46.2 Lymphocytes % 41.1 Monocytes % 8.4 Eosinophils % 3.2 Basophils % 1.1 Nucleated RBC % 0.0 Absolute Neutrophils 2.13 Absolute Lymphocytes 1.90 Absolute Monocytes 0.39 Absolute Eosinophils 0.15 Absolute Basophils 0.05 ESR Lupus Anticoag Interp Functional Protein C Functional Protein S Func Antithrombin III Antithrombin III Activ Factor V Leiden Mutat Factor V Leiden Interp Fact V Leiden Review By Sodium 139 Potassium 4.1 Chloride 101 Carbon Dioxide 30.4 Anion Gap 7.6 BUN 19 H Creatinine 1.0 Est GFR (CKD-EPI 2020) 99.41 Glucose 115 H Hemoglobin A1c Calcium 9.3 Magnesium 2.1 Total Bilirubin 0.7 AST 34 ALT 93 H Alkaline Phosphatase 56 Troponin I < 50 Total Protein 7.6 Albumin 4.0 Total Cholesterol 264 H TSH 0.85 Urine Color Yellow Urine Clarity Clear Urine pH 8.0 Ur Specific Lawrence 1.020 Urine Protein Negative Urine Ketones Negative Urine Blood Negative Urine Nitrite Negative Urine Bilirubin Negative Urine Urobilinogen 0.2 Ur Leukocyte Esterase Negative Urine Glucose Negative Urine Opiates Screen Negative Urine Methadone Screen Negative Ur Barbiturates Screen Negative Ur Tricyclics Screen Negative Ur Amphetamines Screen Negative U Benzodiazepines Scrn Negative Urine Cocaine Screen Negative Ur THC Screen Negative GABRIELLE Titer GABRIELLE Titer 2 GABRIELLE Titer 3 GABRIELLE Interpretation Double Strand DNA Ab B. divergens/MO-1 PCR Pending Babesia duncani (PCR) Pending Babesia microti DNA PCR Pending Lyme Disease Antibody Pending COVID-19 Source SARS-CoV-2 (PCR) E.chaffeensis DNA (PCR) Pending E.ewingii/canis DNA PCR Pending E.muris eauclairensis (PCR) Pending Prothrombin [id number] Mut Prothrombin Mut Interp Prothromb Reviewed By A. phagocytophilum (PCR) Pending Blood B. miyamotoi (PCR) Pending PFSH All Active Problems Infarction of left basal ganglia (Acute) Right facial numbness (Acute) Stroke (Chronic) Muscle strain (Acute) Insomnia (Chronic) Generalized anxiety disorder (Chronic) Allergic rhinitis (Chronic) Surgical History H/O inguinal hernia repair S/P excision of ganglion cyst Right wrist Family History Mother Stroke Father Diabetes Alcohol abuse Depression Heart disease Hyperlipidemia Neoplasm Son No problems noted. Daughter Asthma Daughter No problems noted. Brother Depression Brother No problems noted. Brother No problems noted. Social History Smoking/Tobacco Use Status: Never Smoking risk assessment performed?: Yes Alcohol Intake: current Alcohol Intake frequency: a few times a month Alcohol type: beer, wine and hard liquor Drug use: Rarely Substance use type: marijuana Housing: house Do you feel safe in your relationship?: Yes Time Spent with Patient Time Spent with Patient: 45-69 minutes Time was spent: preparing to see the patient(eg.review tests), obtaining and/or reviewing separately otained hiistory, ordering medications,tests, procedures, referring, communicating with other health managed care liaison, indepentently interpreting results, counseling the patient and care coordination
[2023-07-06 07:10] VITALS: BP 121/75; PULSE 65; RESP 19; TEMP 36.2; O2SAT 98
[2023-07-06] MEDS: Aspirin E.C. 81 MG TABEC PO (07:38)
[2023-07-06] MEDS: Clopidogrel 75 MG TAB PO (07:38)
[2023-07-06 08:12] LABS: ESR 8 mm/hr (0-15)
--- NOTE | 2023-07-06 09:06 | PT.INIE ---
Date of service: 07/06/23 Time of Service: 08:45 PT Notes Visit Reasons: Cerebrovascular accident Inpatient Physical Therapy Evaluation Date: June Referring Doctor: Hari Marlow PT Orders: PT CONSULT: Safety Consult for DC Precautions: Standard Patient Profile/Admitting Diagnosis: Cosmo is a 38-year-old right-handed male with no significant past medical history who woke up around 6:15 AM yesterday got his children up and went to prepare breakfast when he noticed right hand numbness that over the next 10 minutes progressed to his entire right arm and right leg as well as his right face. He knows he was getting clumsy and weak on the right side. He sat on the couch to see if it was getting better when it progressed he started having difficulty with his speech trouble pronouncing words which led to him calling his daughter to wake up his mother who was staying with him. His mother called EMS since the EMS arrived around 6:45 AM and he arrived to the emergency department 7:23 AM. By the time EMS arrived his speech was starting to clear and by the time he arrived to the emergency department his right hemiparesis and paresthesias had improved. Symptoms only lasting approximately 30 minutes. Admitted for further observation PMHX: (Updated 07/05/23 @ 19:01 by Hari Marlow MD) Infarction of left basal ganglia (Acute) Right facial numbness (Acute) Stroke (Chronic) Muscle strain (Acute) Insomnia (Chronic) Generalized anxiety disorder (Chronic) Allergic rhinitis (Chronic) Surgical History H/O inguinal hernia repair S/P excision of ganglion cyst Right wrist Social History/Home Situation: Cosmo lives in a private home in [place]. Has 3 children. 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 Current Functional Limitations: Independent at baseline Subjective: Cosmo reports he feels back to normal. Declines any weakness. Objective: General Observation: Mental Status: Alert and oriented x3 Pain: Declines any pain Vital Signs: 98% O2 saturation on room air, 83 bpm following evaluation ROM: Right Upper Extremity: Demonstrates WNL AROM R UE Left Upper Extremity: Demonstrates WNL AROM L UE Right Lower Extremity: Demonstrates WNL AROM R LE Left Lower Extremity: Demonstrates WNL AROM L LE Strength: Right Upper Extremity: Demonstrates 5/5 R UE strength Left Upper Extremity: Demonstrates 5/5 L UE strength Right Lower Extremity: Demonstrates 5/5 R LE strength Left Lower Extremity: Demonstrates 5/5 L LE strength Sensation: Intact to light touch bilateral UE/LE Bed Mobility/Transfers: Supine-sit: Independent Sit to stand independent Stand to sit independent Bed to chair independent Chair to bed independent Gait: Nonantalgic good koko 300 feet without shortness of breath or loss of balance. Balance: Static Sitting: Normal Dynamic Sitting: Normal Static Standing: Normal Dynamic Standing: Normal 4 stage balance assessment: 8 together 10 seconds, foot and instep of other foot 10 seconds, tandem 10 seconds, unilateral stance 10 seconds right/left 30 second chair stand completed 10 repetitions without difficulty. Special Tests: Mobility Limitations Standardized Measure [facility] 6 clicks Basic Mobility Inpatient Short Form: Raw Score: 24 CMS Score: 0% Informed Consent/Education: Patient instructed in purpose of PT consult and plan of care. Assessment: Patient is a 38 year old male referred to physical therapy services with the diagnosis of s/p CVA. Patient demonstrates full range of motion, full functional strength in bilateral upper and lower extremities, normal balance, equal sensation and normalized gait. Is independent with all functional transfers and bed mobility. Patient has returned to his baseline level of function. Patient is assessed as a Low 73060 complexity based on the following: History: As above Examination: As above Presentation: Stable Decision Making: Low Plan of Care/Treatment Plan: Cosmo has returned to baseline level of function at this time. Does not require further skilled PT services and will be considered discharged from our care. Patient will be discharged from hospital once medically cleared. TREATMENT CODE/TIME: 71500, IE 20 minutes 8:45 am CAMILA Mccoy [facility] Disclaimer: This note was created using [employer] voice recognition software. It was reviewed for major content. However, there may be multiple small discrepancies and errors due to the voice recognition aspects of the software.
--- NOTE | 2023-07-06 10:34 | PDOC.CMIN ---
Date of service: 07/06/23 Time of Service: 10:35 Care Management Initial Assmt Initial Assessment REASON FOR HOSPITALIZATION:: CVA PREVIOUS FUNCTIONAL STATUS/SOCIAL/FAMILY SUPPORTS:: Cosmo lives alone in [place]. He is and has 3 children who occasionally spend overnights with him. 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 He states he has a supportive family and lots of friends. Kev has no in-home or community services and is independent at baseline. CURRENT FUNCTIONAL STATUS:: Kev is sitting up in bed when CM comes to see him. He is pleasant and readily engages in conversation. He recounts the events that led to him being transported via EMS to the hospital. He states his [email or web address] business is coming to a close for this year, so he will be able to take it easy for a while. ADVANCE DIRECTIVES:: None on file. Has patient been provided with info about the portal/API?: Yes Did the patient sign up for the portal?: Yes CODE STATUS:: Full Code INSURANCE COVERAGE / FINANCIAL ISSUES:: None. Patient is given a Patient Assistance Application and CM is making a referral to [facility] for help exploring insurance options. CURRENT HOME/COMMUNITY SERVICES/EQUIPMENT:: None. PRIMARY CARE PHYSICIAN:: EARL Larios POTENTIAL DISCHARGE NEEDS:: Follow up appointments with PCP and neurology. PATIENT/FAMILY EDUCATION NEEDS:: Review of discharge instructions including medications, limitations and follow up plan of care; discuss Ask Me Three and self management. ANTICIPATED BARRIERS TO DISCHARGE:: None. TRANSPORTATION:: Via private vehicle with family. PLAN:: Cosmo will likely be discharged home with no services when medically cleared by provider. He will follow up with his PCP, neurology and plan of care as instructed. He will be driven home by his mom via private vehicle when ready. CM will continue to follow. PFSH All Active Problems Infarction of left basal ganglia (Acute) Right facial numbness (Acute) Stroke (Chronic) Muscle strain (Acute) Insomnia (Chronic) Generalized anxiety disorder (Chronic) Allergic rhinitis (Chronic) Surgical History H/O inguinal hernia repair S/P excision of ganglion cyst Right wrist Family History Mother Stroke Father Diabetes Alcohol abuse Depression Heart disease Hyperlipidemia Neoplasm Son No problems noted. Daughter Asthma Daughter No problems noted. Brother Depression Brother No problems noted. Brother No problems noted. Social History Smoking/Tobacco Use Status: Never Smoking risk assessment performed?: Yes Alcohol Intake: current Alcohol Intake frequency: a few times a month Alcohol type: beer, wine and hard liquor Drug use: Rarely Substance use type: marijuana Housing: house Do you feel safe in your relationship?: Yes
--- NOTE | 2023-07-06 10:54 | PDOC.CMDIS ---
Date of service: 07/06/23 Time of Service: 10:54 LACE Index Scoring Tool Questions: Length of Stay (in days): 1 Was the patient admitted via the E.D.?: Yes E.D. Visits: 0 Answers: Total Score: 4 Risk of Readmission: Low Risk Care Management Discharge Plan Reason for Hospitalization: CVA Discharge Plan: Kev is discharged home with no services. He will follow up with his PCP, neurology and discharge plan of care as directed. He is transported home by his mother via private vehicle. Patient/Family Education Needs: Nursing staff review discharge instructions including medications, limitations and follow up plan of care; discussion of Ask Me Three.
[2023-07-07 23:55] LABS: Anaplasma phagocytophilum Negative (Negative); B. miyamotoi PCR Negative (Negative); Babesia divergens/MO-1 Negative (Negative); Babesia duncani Negative (Negative); Babesia microti Negative (Negative); Ehrlichia chaffeensis Negative (Negative); Ehrlichia ewingii/canis Negative (Negative); Ehrlichia muris eauclairensis Negative (Negative)
[2023-07-08 07:30] LABS: Antithrombin 3, Funct. 99 % (85-125)
[2023-07-08 10:11] LABS: Lyme Ab w Rflx to Lyme Confirm Negative (Negative)
[2023-07-08 14:11] LABS: ANA Interpretation Negative (Negative)
[2023-07-08 17:12] LABS: LA Cascade Summary (See Note)
[2023-07-09 08:41] LABS: dsDNA Ab, IgG <12.3 IU/mL (<30.0)
[2023-07-09 10:53] LABS: Antithrombin Activity, Plasma 96 % (80 - 130)
[2023-07-10 11:21] LABS: Protein C, Functional >150 % (71-199); Protein S, Functional 112 % (73-156)
[2023-07-10 13:13] LABS: Factor V Leiden(R506Q) Mut Negative (Negative)
[2023-07-10 13:15] LABS: Prothrombin G20210A Mutation Negative (Negative)
== END 2023-07-06 12:27 | disposition home or self-care (01) ==
LOC: ER 13:56 → MS 15:46
PROVIDERS: Admitting Provider Internal Medicine; Emergency Provider Emergency Medicine Emergency Medical Services; PCP Nurse Practitioner Family; Visit Provider Internal Medicine
DX: I63.81 Other cerebral infarction due to occlusion or stenosis of small artery (principal); F51.04 Psychophysiologic insomnia; F41.1 Generalized anxiety disorder; R20.2 Paresthesia of skin
CPT/HCPCS: 00123; 36415; 36416; 70496; 70498; 80048; 80053; 80307; 81240; 81241; 82962; 85300; 85306; 85652; 87116; 87635; 87798; 92610; 93005; 96372; 97161; 99285; J1650; 70450; 70551; 71045; 81003; 82465; 83036; 83735; 84443; 84484; 85025; 85303; 86038; 86225; 86618; 93010; 93306; 99223; 99232

== ENCOUNTER 2023-07-06 12:31 | Outpatient (RCR) | payer MEDICAID, SELFPAY | END 2023-07-09 23:59 | disposition home or self-care (01) | LOC: RT 12:31 | PROVIDERS: PCP Nurse Practitioner Family; Visit Provider Nurse Practitioner Family | DX: I63.9 Cerebral infarction, unspecified (principal) | CPT/HCPCS: 93270 ==

== ENCOUNTER 2023-07-23 01:04 | Outpatient (CLI) | payer MEDICAID, SELFPAY ==
[2023-07-23 13:00] LABS: ALT 94 U/L (16-63); AST 33 U/L (15-37); Albumin 4.1 g/dL (3.4-5.0); Alkaline Phosphatase 63 U/L (46-116); Anion Gap 8.5 mmol/L (3-11); BUN 22 mg/dL (7-18); Bilirubin, Total 0.4 mg/dL (0.2-1.0); CO2 28.5 mmol/L (21.0-32.0); Calcium 9.5 mg/dL (8.5-10.1); Calculated LDL 145 mg/dL (<100); Chloride 101 mmol/L (98-107); Cholesterol 220 mg/dL (<200); Estimated GFR 99.41 (mL/min/1.73m2); Glucose 97 mg/dL (74-106); HDL Cholesterol 54 mg/dL (40-60); Potassium 3.8 mmol/L (3.5-5.1); Sodium 138 mmol/L (136-145); Total Protein 8.2 g/dL (6.4-8.2); Triglyceride 106 mg/dL (<150)
[2023-07-24 09:41] LABS: HIV-1/2 Ag & Ab Screen Negative (Negative)
[2023-07-24 15:16] LABS: Hepatitis C Ab w Rflx HCV PCR Negative (Negative)
== END 2023-07-23 01:05 | disposition home or self-care (01) ==
LOC: LOS 01:04
PROVIDERS: PCP Nurse Practitioner Family; Visit Provider Nurse Practitioner Family
DX: Z13.220 Encounter for screening for lipoid disorders (principal); Z11.59 Encounter for screening for other viral diseases; Z11.4 Encounter for screening for human immunodeficiency virus [HIV]
CPT/HCPCS: 36415; 80053; 80061; 86803; 87389

== ENCOUNTER 2023-08-12 08:04 | Outpatient (CLI) | payer MEDICAID, SELFPAY ==
--- NOTE | 2023-08-12 09:08 | W.CARDEVENT ---
Date of service: 08/12/23 Time of Service: 09:08 Cardiac Event Recorder Referring Provider:: True Talbot Indications:: Cerebral infarction Cardiac Event Note: This is a 30-day cardiac event monitor Rhythm throughout was sinus. Average heart rate was 75. Minimum was 47. Maximum was 167 There were no ventricular dysrhythmias There were no supraventricular dysrhythmias, specifically no atrial fibrillation There was no high-grade AV block, no pauses greater than 3 seconds Symptoms were reported all of which corresponded to sinus rhythm
== END 2023-08-12 08:05 | disposition home or self-care (01) ==
LOC: CARDOPNVT 08:04
PROVIDERS: PCP Nurse Practitioner Family; Visit Provider Internal Medicine Cardiovascular Disease
DX: I63.9 Cerebral infarction, unspecified (principal)

== ENCOUNTER 2023-11-05 03:20 | Outpatient (CLI) | payer MEDICAID, SELFPAY ==
[2023-11-05 12:33] LABS: ALT 94 U/L (16-63); AST 31 U/L (15-37); Alkaline Phosphatase 66 U/L (46-116); Anion Gap 8.8 mmol/L (3-11); BUN 14 mg/dL (7-18); Bilirubin, Total 0.4 mg/dL (0.2-1.0); CO2 28.2 mmol/L (21.0-32.0); Calcium 9.6 mg/dL (8.5-10.1); Calculated LDL 199 mg/dL (<100); Chloride 104 mmol/L (98-107); Cholesterol 280 mg/dL (<200); Estimated GFR 99.41 (mL/min/1.73m2); Glucose 104 mg/dL (74-106); HDL Cholesterol 53 mg/dL (40-60); Potassium 4.1 mmol/L (3.5-5.1); Sodium 141 mmol/L (136-145); Total Protein 7.7 g/dL (6.4-8.2); Triglyceride 142 mg/dL (<150)
== END 2023-11-05 03:21 | disposition home or self-care (01) ==
LOC: LOS 03:21
PROVIDERS: PCP Nurse Practitioner Family; Visit Provider Nurse Practitioner Family
DX: I63.9 Cerebral infarction, unspecified (principal); F41.1 Generalized anxiety disorder
CPT/HCPCS: 36415; 80053; 80061

== ENCOUNTER 2025-03-03 20:08 | Outpatient (REF) | payer SELFPAY ==
[2025-03-05 10:56] LABS: HIV-1/2 Ag & Ab Screen Negative (Negative)
[2025-03-05 11:09] LABS: Hepatitis C Ab w Rflx HCV PCR Negative (Negative)
[2025-03-05 12:09] LABS: Chlamydia Result Negative (Negative); GC Result Negative (Negative)
[2025-03-05 12:20] LABS: Syphilis Serology (RPR) Negative (Negative)
== END 2025-03-03 20:09 | disposition home or self-care (01) ==
LOC: LBN 20:08
PROVIDERS: PCP Nurse Practitioner Family; Visit Provider Nurse Practitioner Family
DX: Z11.3 Encounter for screening for infections with a predominantly sexual mode of transmission (principal)
CPT/HCPCS: 86803; 87389; 87491; 87591; 86592